=== PATIENT | female | born 1950 | race Caucasian/White ===

== ENCOUNTER 2025-03-11 15:20 | Emergency (ER) | payer MEDICARE, SELFPAY ==
[2025-03-11 16:23] VITALS: BP 143/64; PULSE 87; RESP 16; TEMP 37.1; O2SAT 97
--- NOTE | 2025-03-11 17:39 | ED.EYEPROB ---
HPI - Eye Problem General Chief complaint: Eye Problems Stated complaint: right eye issue Time Seen by Provider: 03/11/25 16:47 History of Present Illness HPI Narrative: Patient is a 74-year-old female who presents ER with redness the white part of her right eye. Located in the medial inferior aspects. She saw a cyst on it earlier today and so she squeezed it and blood came out. She reports that the blood is been present in the sclera however for the last 4 days. No fevers or chills or sweats. No known trauma outside of squeezing the cyst today. She is anticoagulated. Review of Systems Constitutional: Constitutional: Reports no additional constitutional complaints Eyes: Eyes: Reports no additional eye complaints PMFSH Past Medical History Medical History (Updated 03/11/25 @ 17:42 by Sterling Buchanan MD) Bronchiectasis Afib Exam Narrative: GENERAL: Well-appearing, well-nourished, and in no acute distress. HEAD: Normocephalic, atraumatic. EYES: PERRL and EOMI. Right eye with subconjunctival hemorrhage over the medial inferior aspect. Spirits lateral and superior aspect. EXTREMITIES: Normal range of motion. No edema. SKIN: Warm, dry, no rash. NEURO: No focal deficits. Alert and oriented x3. PSYCH: Normal mood and affect. Course Course Emergency Course: Patient reports no change in vision. Discussed healing process of subconjunctival hemorrhage. Appropriate for discharge. Vital Signs Vital signs: Vital Signs Temperature 98.7 F 03/11/25 16:23 Pulse Rate 87 03/11/25 16:23 Respiratory Rate 16 03/11/25 16:23 Blood Pressure 143/64 H 03/11/25 16:23 Pulse Oximetry 97 03/11/25 16:23 Temperature 98.7 F 03/11/25 16:23 Pulse Rate 87 03/11/25 16:23 Respiratory Rate 16 03/11/25 16:23 Blood Pressure 143/64 H 03/11/25 16:23 Pulse Oximetry 97 03/11/25 16:23 Discharge Plan Discharge Clinical Impression: Subconjunctival hemorrhage Patient Disposition: Home Condition: Stable Additional Instructions: You centrally have a bruise of the sclera of your I called the subconjunctival hemorrhage. This will resolve on its own. He may contact her assistant federal public defender to see if you can withhold your blood thinner for 1-2 days but do not stop it mostly recommended. Urine not actively bleeding. Avoid rubbing her eyes or blowing her nose. Patient Language: Ghanaian Follow-up/Referrals: Ronn,Jerome Dewey [Other] - 1 Week
[2025-03-11 18:03] VITALS: BP 127/85; PULSE 86; RESP 15; O2SAT 99
== END 2025-03-11 18:06 | disposition home or self-care (01) ==
PROVIDERS: Emergency Provider Emergency Medicine
DX: H11.31 Conjunctival hemorrhage, right eye (principal); I48.91 Unspecified atrial fibrillation
CPT/HCPCS: 99282